=== PATIENT | female | born 1950 | race Caucasian/White ===

== ENCOUNTER → 2019-10-05 09:10 | Outpatient (CLI) | payer MEDICARE ==
[~2019-10-05 09:10] MED LIST: ALBUTEROL1.25 MG/3; BENTYL10 MG PO; CARAFATE1 G; COLESTID1 GM PO; ESTRACE1 MG PO; OMEPRAZOLE40 MG; PEPCID AC20 MG PO; PROZAC20 MG; PULMICORT FLEXHALER; RESTORIL15 MG
== END | disposition home or self-care (01) ==
LOC: D.OPS 09:10
PROVIDERS: ATTEND Surgery
DX: K21.0 Gastro-esophageal reflux disease with esophagitis (principal)

== ENCOUNTER 2019-10-11 06:29 | Inpatient (IN) | payer MEDICARE ==
[~2019-10-11] VITALS: Ht 170.2 cm; Wt 89.4 kg
[2019-10-11] VITALS (12 sets, daily range): BP systolic 103–126; BP diastolic 63–75; BMI 29.0; BMI 30.9
--- NOTE | ~2019-10-11 | EC ---
PATIENT:GREGORY CARDOZA DATE OF SERVICE: 10/11/19 SEX: F MEDICAL RECORD: [id number] DATE OF : [birth year] LOCATION:D.MS [place] AGE OF PATIENT: 69 ADMISSION DATE: 10/11/19 REFERRING PHYSICIAN: INTERPRETING PHYSICIAN: CASSIE CISNEROS MD ECHOCARDIOGRAM REPORT ECHO CHARGES 4 ECHO COMPLETE Date: 10/16/19 CLINICAL DIAGNOSIS: DYSPNEA ECHOCARDIOGRAPHIC MEASUREMENTS (adult normal given) AC root (d.<3.7cm) 3.0 cm LV Septum d (<1.2 cm> 0.6 cm Valve Excursion 1.8 cm LV Septum (systole) 1.1 cm Left Atria (s.<4.0cm> 4.1 cm LVPW d(<1.2cm) 1.1 cm RV (d.<2.3cm) 2.9 cm LVPW (sytole) 1.2 cm LV diastole(<5.6CM) 5.1 cm MV E-F(>70mm/sec) cm LV systole 3.6 cm LVOT Diameter 1.9 cm MV exc.(>10mm) cm Est.ejection fraction (50-75%) % DOPPLER: LVIT cm/sec A 111 cm/sec E 125 cm/sec LA cm/sec RVSP 24.3 mmHg LVOT 151 cm/sec AOP1/2T m/s Asc. Ao 180 cm/sec RVOT 76 cm/sec RA cm/sec PA 80 cm/sec AV Gradient Peak 13.0 mmHg AV Mean 6.2 mmHg AV Area 2.7 cm MV Gradient Peak 7.7 mmHg MV Mean 3.9 mmHg MV Area cm COMMENTS: Medical Assistant Prn: Fabiola [facility] Product Info Specialist: 1 Dr. Cisneros TAPE# PACS Pericardial Effusion N DATE OF SERVICE: ECHOCARDIOGRAM FINDINGS: 1. Left ventricular chamber size is within normal limits. Left ventricular systolic function is normal at 55%. 2. Left atrium is enlarged at 4.1 cm. Right atrium and right ventricular chamber sizes are as well mildly dilated. 3. Valvular structures have normal structure and motion. ECHOCARDIOGRAM REPORT [id number] GREGORY CARDOZA 4. Doppler interrogation reveals no significant valvular insufficiency or stenosis and pulmonary systolic pressure estimated at 24 mmHg. 5. No evidence of pericardial effusion or left ventricular thrombus. TRANSINT:[id number] Voice Confirmation ID: [id number] DOCUMENT ID: [id number] CASSIE CISNEROS MD CC: [id number] DICTATION DATE: 10/17/19 1026 TOOL GRINDING MACHINE OPERATOR: 10/17/19 1053 ADM IN [place] [id number] [place] [id number]
[~2019-10-11 06:29] MED LIST changes: -CARAFATE1 G; +CARAFATE1 G PO; -OMEPRAZOLE40 MG; +OMEPRAZOLE40 MG PO; -PROZAC20 MG; +PROZAC20 MG PO; -PULMICORT FLEXHALER; +PULMICORT FLEXHALER INH
[2019-10-11] MEDS ORDERED: RESTORIL15 MG PO (07:10)
[2019-10-11 07:12] LABS: HEMATOCRIT 44.9 % (36.0-48.0); HEMOGLOBIN 15.2 g/dL (12-16); MCH 29.5 pg (26.0-34.0); MCHC 33.9 g/dL (31.0-37.0); MCV 87.2 fL (80.0-100.0); MEAN PLATELET VOLUME 9.6 fL (7.4-10.4); RBC 5.15 10x6/uL (4.00-5.40); RDW 13.4 % (11.5-14.5); WBC 6.8 10x3/uL (4.8-10.8)
--- NOTE | 2019-10-11 12:21 | NUR ---
1210 - PT READY FOR D/C, NO BED AVAILBLE. CONVERTING TO PHASE 2 PROTOCOL PENDING BED AVAILBILITY.
--- NOTE | 2019-10-11 13:18 | NUR ---
PATIENT ADMITTED TO ROOM 2213. ADMISSION COMPLETE. RESTING. DENIES NEEDS. BED LOW. FALL PRECAUTIONS IN PLACE.CALL PIPER AND PERSONAL ITEMS IN REACH. WILL CONTINUE TO MNITOR.
--- NOTE | 2019-10-11 13:39 | NUR ---
DIRECTOR HOSPICE OPERATIONS PUMP SET UP. EDUCATION PROVIDED.
--- NOTE | 2019-10-11 15:11 | NUR ---
RESTING IN BED. VITALS REMAIN STABLE. WILL CONTINUE TO MONITOR.
--- NOTE | 2019-10-11 17:09 | NUR ---
O2 INCREASED TO 5L PER DR BLANC AND TO STAY AT 5L.
--- NOTE | 2019-10-11 17:09 | NUR ---
BOLUS DOSE FROM DECORATIVE ENGRAVER GIVEN.
--- NOTE | 2019-10-11 19:30 | NUR ---
PT LYING IN BED RESTING WITHOUT DISTRESS, AWAKENS TO VERBAL STIMULI. AOX4, AT BEDSIDE. IV LEFT HAND INUSING LR @ 100 WITH MORPHINE CHILD CARE SPECIALIST. PT DRESSINGS TO ABD CDI. O2 5L/NC. ENCOURAGED PT TO USE INCENTIVE SPIROMETER AND SPLINT ABD WITH PILLOW WHEN COUGHING. DENIES NEEDS AT THIS TIME. CL IN REACH, WILL CTM
--- NOTE | 2019-10-11 21:00 | NUR ---
ASSISTED PT TO BATHROOM TO VOID. PT UNABLE TO VOID AT THIS TIME. ASSISTED BACK TO BED. EMPTIED 40ML FROM FLEX DRAIN. DENIES OTHER NEEDS. WILL CTM
[2019-10-12] VITALS: BP 134/71
--- NOTE | 2019-10-12 01:00 | NUR ---
ASSISTED PT TO BATHROOM. VOIDED 400ML. ASSISTED BACK TO BED. TOLERATED WELL. DRESSING CDI. DENIES OTHER NEEDS. CL IN REACH, WILL CTM
[2019-10-12 04:00] VITALS: BP 110/72
--- NOTE | 2019-10-12 05:40 | NUR ---
ASSISTED PT UP TO BATHROOM TO VOID AND BACK TO BED. TOLERATED WELL, MINIMAL ASSIST. PT VERY SORE. USING PILLOW TO SPLINT. ENCOURAGED TO BREATHE IN THROUGH NOSE, OUT MOUTH. REINFORCED IMPORTANCE OF INCENTIVE SPIROMETER. DENIES FURTHER NEEDS. CL IN REACH, WILL CTM
[2019-10-12 06:46] LABS: BASOPHILS 0.1 % (0-2); EOSINOPHILS 0 % (0-7); HEMATOCRIT 42.1 % (36.0-48.0); HEMOGLOBIN 13.8 g/dL (12-16); IMMATURE GRANULOCYTES 0.2 % (0-5); MCH 29.2 pg (26.0-34.0); MCHC 32.8 g/dL (31.0-37.0); MEAN PLATELET VOLUME 9.7 fL (7.4-10.4); MONOCYTES 6.4 % (2-11); NEUTROPHILS 87.3 % (40-80); PLATELET COUNT 223 10x3/uL (130-400); RBC 4.72 10x6/uL (4.00-5.40); RDW 13.7 % (11.5-14.5)
[2019-10-12 06:57] LABS: WBC 12.6 10x3/uL (4.8-10.8)
[2019-10-12 06:58] LABS: MCV 89.2 fL (80.0-100.0)
[2019-10-12 07:02] LABS: ALBUMIN 2.9 g/dL (3.4-5.0); ALKALINE PHOSPHATASE 90 U/L (30-120); ALT (SGPT) 88 U/L (10-68); BILIRUBIN - TOTAL 0.29 mg/dL (0.2-1.3); CALC OSMOLALITY 277 mosm/kg (275-300); CALCIUM 8.2 mg/dL (8.5-10.1); CARBON DIOXIDE 26.3 mmol/L (21.0-32.0); CHLORIDE - SERUM 106 mmol/L (98-107); CREATININE - SERUM 0.8 mg/dL (0.6-1.3); GLUCOSE 110 mg/dL (74-106); POTASSIUM - SERUM 4.2 mmol/L (3.5-5.1); SODIUM 139 mmol/L (136-145); UREA NITROGEN 11 mg/dL (7-18); eGFR NON AFRICAN AMERICAN 75 mL/min (90-120)
--- NOTE | 2019-10-12 09:01 | OP ---
PATIENT NAME: GREGORY CARDOZA MEDICAL RECORD: [id number] :46 LOCATION:D.MS [facility]221[place]ior ADMISSION DATE:10/11/19 SURGEON: BRAINA BLANC MD DATE OF OPERATION: 10/11/2019 SURGEON: Briana Blanc MD PREOPERATIVE DIAGNOSES: Gastroesophageal reflux disease with esophagitis, hiatal hernia. POSTOPERATIVE DIAGNOSES: Grade III paraesophageal hernia with esophagitis, gastroesophageal reflux disease. PROCEDURE PERFORMED: Laparoscopic paraesophageal hernia repair and Ann fundoplication and intraoperative EGD was performed by my partner, Dr. Monae. ESTIMATED BLOOD LOSS: 100 cc. Case was clean contaminated. OPERATIVE COURSE: After consent was obtained, the patient was taken to the operating room and placed in the supine position on the operating table. Next, general anesthesia was given via endotracheal intubation after a timeout was performed to confirm the correct patient and procedure. After general anesthesia was obtained, the abdomen was prepped and draped in typical sterile fashion. Local anesthetic was injected just above the umbilicus. Skin was incised using 11-blade scalpel. Using 11-mm bladeless optical trocar, the abdomen was entered under direct laparoscopic vision. Adequate pneumoperitoneum was achieved. The abdominal cavity was inspected. No evidence of bile injury, no evidence of bleeding. At this time, all remaining trocars were placed, a 5 and 12-mm trocar placed in the right lateral quadrant, 5-mm trocar in the left lateral quadrant, Ben liver retractor in the subxiphoid position. All instruments were placed under direct laparoscopic vision. The left lobe of the liver was then elevated using the Ben retractor exposing the GE junction. The patient had a large paraesophageal hernia containing the upper two-thirds of the stomach. This hernia proved quite difficult to reduce. With gentle manual reduction, the hernia sac was incised. The short gastrics were mobilized off of the cardia using the Harmonic scalpel and dissection continued to the level of left crura. The left crura was skeletonized and using Harmonic scalpels with continuous dissection of the hernia sac. Next, the gastrohepatic ligament was opened using Harmonic scalpel. Dissection continued through the gastrohepatic ligament until the right crura was identified. Dissection then continued posteriorly until the dissection was completed to the level of the left crura. Then, we turned our attention anteriorly in getting full and complete dissection of the hernia sac. We were unable to obtain adequate intra-abdominal esophagus. Dissection continued well far into the mediastinum trying to obtain intra-abdominal esophagus length. We were able to get the GE junction below the diaphragm under no tension. There were a small pleural injury noted on the right side, there was a large pleural injury noted on the left side. This side was quite difficult due to the amount of stomach that was herniated into the left chest. The anterior and posterior vagus nerves were identified and preserved. As, we continued to dissect the hernia sac off of the anterior surface of the stomach, a small gastrotomy was encountered. At this time, the gastrotomy was closed with interrupted 3-0 OPERATIVE REPORT [id number] GREGORY CARDOZA Vicryl suture. My partner, Dr. Monae, was consulted. He came and performed an intraoperative EGD. We did an intraoperative EGD, which showed no esophageal injuries. The gastrotomy hole appeared well repaired. A leak test was performed by instilling water in the upper abdomen. There was no evidence of leak. At this time, Adan powder was sprayed into the mediastinum. The diaphragm was closed with an 0 Stratafix polypropylene suture. A Ann was performed by passing the stomach posterior to the gastroesophageal junction. A loose floppy Ann was performed covering the area of the prior gastrotomy repair. The Ann was performed using a 2-0 Stratafix suture. At this time, the scope was reinserted into the stomach. The stomach was insufflated. Again, a second leak test was performed, which showed no evidence of leak. The scope was slowly withdrawn. There was no abnormality or mucosal trauma noted within the esophagus as well or the stomach. At this time, the stomach was desufflated. The scope was withdrawn. A 19-Setswana drain was placed into the abdomen. It was placed through the diaphragm and into the mediastinum and left chest. It was delivered out through the 5-mm left lower quadrant trocar. The abdomen was copiously irrigated and suctioned. All 4 quadrants of the abdomen were inspected. There was no evidence of bowel injury. No evidence of bleeding. The Ben liver retractor was removed. A 5-mm camera was then used to close the 2 larger trocar sites with a Trent-Ana suture passer and 0 Vicryl suture. The stomach was desufflated. Multiple Valsalva breaths were given. At this time, the remaining trocar was removed. Skin was closed with 4-0 Monocryl, Mastisol and Steri-Strips. The drain was secured using 2-0 nylon suture. A postoperative chest x-ray was performed, which showed no evidence of pneumothorax. At this time, the patient was extubated and transferred to the PACU in stable condition. TRANSINT:[id number] Voice Confirmation ID: [id number] DOCUMENT ID: [id number] BRIANA BLANC MD at 0901 CC: [id number] DICTATION DATE: 10/11/19 1250 QUALITY SUPERVISOR: 10/11/19 1632 ADM IN [place] [address] [place] [address]
[2019-10-12 09:34] VITALS: BP 100/54
--- NOTE | 2019-10-12 11:15 | NUR ---
PATIENT UP TO CHAIR AT THIS TIME WITH ASSIST. IV INTACT. O2 ON 5L. SATS 92-94. CALL LIGHT WITHIN REACH. FAMILY AT BEDSIDE. PT IN TO AMBULATE WITH PATIENT.
--- NOTE | 2019-10-12 11:20 | NUR ---
PATIENT UP AMBULATING IN WALLER WITH PT.
--- NOTE | 2019-10-12 11:24 | NUR ---
PATIENT HAILE REMOVED AT THIS TIME. EXPLAINED TO PATIENT THAT HE WILL NEED TO GET OUT OF BED AND AMBULATE IN HALLS. VERBALIZED UNDERSTANDING. NO QUESTIONS AT THIS TIME. IV INTACT. URINAL GIVEN TO PATIENT. CALL LIGHT WITHIN REACH.
[2019-10-12 13:04] VITALS: BP 104/47
[2019-10-12 13:36] VITALS: Ht 170.2 cm; Wt 89.4 kg
[2019-10-12 18:07] VITALS: BP 110/50
--- NOTE | 2019-10-12 18:45 | NUR ---
PATIENT IN BED WITH IV INTACT. HAS BEEN UP AND DOWN SEVERAL TIMES TO BR. NO COMPLAINTS. FAMILY AT BEDSIDE. CALL LIGHTW PATRICE LIU.
[2019-10-12 20:00] VITALS: BP 114/46
[2019-10-13] VITALS: BP 113/62
[2019-10-13 04:00] VITALS: BP 107/50
[2019-10-13 04:52] LABS: BASOPHILS 0.1 % (0-2); EOSINOPHILS 0 % (0-7); HEMATOCRIT 34.8 % (36.0-48.0); HEMOGLOBIN 11.2 g/dL (12-16); IMMATURE GRANULOCYTES 0.3 % (0-5); LYMPHOCYTES 6.2 % (15-50); MCH 28.8 pg (26.0-34.0); MCHC 32.2 g/dL (31.0-37.0); MCV 89.5 fL (80.0-100.0); MEAN PLATELET VOLUME 9.3 fL (7.4-10.4); MONOCYTES 10.4 % (2-11); RBC 3.89 10x6/uL (4.00-5.40)
[2019-10-13 04:55] LABS: CALC OSMOLALITY 275 mosm/kg (275-300); CALCIUM 8.1 mg/dL (8.5-10.1); CARBON DIOXIDE 26.4 mmol/L (21.0-32.0); CHLORIDE - SERUM 104 mmol/L (98-107); CREATININE - SERUM 0.8 mg/dL (0.6-1.3); GLUCOSE 100 mg/dL (74-106); SODIUM 138 mmol/L (136-145); UREA NITROGEN 12 mg/dL (7-18); eGFR NON AFRICAN AMERICAN 75 mL/min (90-120)
[2019-10-13 05:06] LABS: POTASSIUM - SERUM 3.4 mmol/L (3.5-5.1)
[2019-10-13 05:13] LABS: PLATELET COUNT 146 10x3/uL (130-400); WBC 7.1 10x3/uL (4.8-10.8)
[2019-10-13 05:18] LABS: APTT 40.3 SECONDS (22.8-39.4); INR 1.33 (0.85-1.17); PROTIME 16.4 SECONDS (11.6-15.0)
--- NOTE | 2019-10-13 06:48 | NUR ---
ASSESSED AT THE BEGINNING OF THE SHIFT. PT IS ALERT AND ORIENTED, ABLE TO VERBALIZE NEEDS. HER HAS REMAINED WITH HER ALL NIGHT AND WE HAVE ASSISTED HER TO THE BATHROOM NEEDED. SHE IS WEARING HER SCD'S AND THERE WAS A LITTLE BIT OF BLOODY DRAINAGE ONCE BUT NOT SINCE THEN. O2 REMAINS IN PLACAE AT 5 LITERS.
--- NOTE | 2019-10-13 07:58 | NUR ---
PT RESTING IN BED WITH EYES OPEN, AT THE BEDSIDE. IV LOCATED TO LEFT HAND CURRENTLY RUNNING LR @ 100ML, MORPHINE DRIER AND GRINDER TENDER PRESENT. CURRENTLY ON 5L VIA NC. NO S/S OF DISTRESS AT THIS TIME, DENIES NEEDS, WILL CONT TO MONITOR.
[2019-10-13 08:43] VITALS: BP 136/90
--- NOTE | 2019-10-13 11:59 | NUR ---
FLEX DRAIN PULLED, STERISTRIP AND 2X2 APPLIED. 25ML OF BLOODY DRAINAGE EMPTIED. WILL CONT TO MONITOR.
[2019-10-13 12:12] VITALS: BP 108/52
--- NOTE | 2019-10-13 12:25 | NUR ---
ASSISTED RN IN PASSING PATIENT MEDS AND STARTING IV. SCANNED ALL MEDS AT 1013 INCLUDING VANC WHICH WAS NOT DUE. HUNG PIPERCILLIN FIRST UNTIL TROUGH WAS COMPLETED, RECEIVED CALL FROM PHARMACIST A LITTLE AFTER 11 IN REGARDS TO VANC, ADVISED HAD NOT HUNG YET AND PER PHARMACIST, TROUGH IS LOW ENOUGH TO HANG. ASKED NURSE TO GO AHEAD AND HANG VANC WHICH WAS THEN HUNG AT 1135. ADJUSTED TIME PER KIT IN PHARMACY
--- NOTE | 2019-10-13 16:12 | MORECARE ---
CASE MANAGEMENT DISCHARGE SUMMARY PATIENT: GREGORY CARDOZA UNIT: [id number] ADM DATE: 10/11/19 AGE: 69 : 48 SEX: F ROOM/BED: D.2213 AUTHOR: ERIN,DOC PHYSICIAN: REFERRING PHYSICIAN: BRIANA BLANC MD DATE OF SERVICE: 10/13/19 Discharge Plan Patient Name: GREGORY CARDOZA Facility: [facility]:[place] : 1950 Planned Disposition: Home Anticipated Discharge Date: Discharge Date: Expected LOS: Initial Reviewer: [email or web address] Initial Review Date: 10/12/2019 Generated: 10/13/19 5:12 pm Comments DCP- Discharge Planning Updated by [email or web address]: Ely Molina on 10/13/19 3:[address] Patient Name: GREGORY CARDOZA Admission Status: Elective Accout number: [id number] Admission Date: 10-11-2019 : 1950 Admission Diagnosis: Attending: BRIANA BLANC Current LOS: 2 Anticipated DC Date: Planned Disposition: Home Primary Insurance: MEDICARE A & B Discharge Planning Comments: CM met with patient to complete initial dc planning assessment. CM educated patient on the CM role and verbal consent given by patient to complete assessment. Patient lives at home with her spouse where she is independent with her care. At discharge patient plans to return home and feels this is a safe discharge. Her will be her public transit bus driver home. CM discussed availability of home health, rehab services, and medical equipment. She does have a nebulizer at home. Patient denied known discharge needs at this time. IMM served and explained copy given to her and one placed on the chart. CM will continue to follow and will assist as needed with dc plans/needs. Platemaker: Ely Molina DCPIA - Discharge Planning Initial Assessment Updated by [email or web address]: Ely Molina on 10/13/19 4:10 pm * Is the patient Alert and Oriented? Yes * How many steps to enter\exit or inside your home? * PCP RAHEL YE IN [place] * [facility] [address] [place] * Preadmission Environment Home with Family * ADLs Independent * Equipment Nebulizer * List name and contact numbers for known caregivers / representatives who currently or will assist patient after discharge: MYA (SPRINGPJAIRO) [phone] * Verbal permission to speak to the caregivers and representatives has been obtained from the patient. N/A * Community resources currently utilized None * Additional services required to return to the preadmission environment? No * Can the patient safely return to the preadmission environment? Yes * Has this patient been hospitalized within the prior 30 days at any hospital? No Coverage Notice Reviewer: [email or web address] Juan A Molina Notice Issued Date-Time: 10/13/2019 15:30 Notice Type: IM Discharge Notice Notice Delivered To: Patient Relationship to Patient: Etymology Teacher Name: Delivery Method: HAND - Hand Delivered Kathrin Days: Prior Verbal Notification: Recipient Understood Notice: Yes Recipient Signature: Yes Med Rec Note Co-signed by Attending: Coverage Notice Comment: Patient Name: GREGORY CARDOZA Page [phone] at 1612 All edits/amendments must be made on the electronic document DICTATION DATE: 10/13/19 1612 EXERCISER: NATHANIEL 10/13/19 1612 RPT#: [id number] DC DATE: STATUS: ADM IN [address] [place] [address] END OF REPORT
[2019-10-13 17:03] VITALS: BP 104/60
--- NOTE | 2019-10-13 17:18 | NUR ---
OT NOTE: (AM SESSION) PT COMPLETED BED MOB WITH MIN A. PT REQUIRED MIN A FOR SIT TO STAND. PT COMPLETED COMPLETED ADL MOB WITH RW WITH EXTRA TIME AND ASSISTANCE FOR MANAGEMENT OF MEDICAL EQUIPMENT DURING TASKS. PT COMPLETED TOILETING WITH CGA. (PM SESSION) PT IS EXHIBITING SOB WITH ACTIVITIES. PT COMPLETED ADL MOB WITH RW WITH CGA-MIN A, PT COMPETED TOILETING TASKS WITH CGA-MIN A. NOTIFIED NURSING THAT PT STATES IT IS VERY DIFFICULT TO BREATHE WITH ACTIVITIES AND LAYING SUPINE. PT WOULD BENEFIT FROM IN PATIENT REHAB. [phone] THANK YOU,REAL DOWNS
--- NOTE | 2019-10-13 17:59 | OP ---
PATIENT NAME: GREGORY CARDOZA MEDICAL RECORD: [id number] :46 LOCATION:D.MS Hernandez221Jnuior ADMISSION DATE:10/11/19 SURGEON: JUDI YA MD DATE OF OPERATION: 10/11/2019 PREOPERATIVE DIAGNOSIS: Rule out gastric leak. POSTOPERATIVE DIAGNOSIS: Rule out gastric leak. PROCEDURE: Esophagogastroduodenoscopy. DESCRIPTION OF PROCEDURE: Dr. Myles was performing the abdominal portion of the operation. I was the surgeon for the esophagogastroduodenoscopy without biopsies. He wanted me to pneumatically test the gastric repair. I came to OR 5. A bite block was inserted. A gastroscope was inserted into the mouth. It was advanced easily into the hypopharynx. The esophagus was easily intubated as were the stomach and duodenum. We were using CO2 as our insufflation gas. He instilled fluid in the left upper quadrant and I inflated gas, so that the stomach was distended and there was no bubbling of CO2 and therefore no evidence of a gastric leak. I then desufflated the stomach. I then withdrew the scope under direct vision. That ended my portion of the operative procedure. TRANSINT:[id number] Voice Confirmation ID: [id number] DOCUMENT ID: [id number] JUDI YA MD at 1759 CC: [id number] DICTATION DATE: 10/11/19 1223 CONSTRUCTION REPRESENTATIVE: 10/11/19 1517 ADM IN [facility] [address] [place] [address]
[2019-10-13 20:26] VITALS: BP 124/64
[2019-10-14 00:35] VITALS: BP 136/78
[2019-10-14 04:55] VITALS: BP 116/66
[2019-10-14 05:36] LABS: BASOPHILS 0.2 % (0-2); EOSINOPHILS 1.1 % (0-7); HEMATOCRIT 33.9 % (36.0-48.0); IMMATURE GRANULOCYTES 0.2 % (0-5); LYMPHOCYTES 8.6 % (15-50); MCH 28.8 pg (26.0-34.0); MCHC 32.4 g/dL (31.0-37.0); MCV 88.7 fL (80.0-100.0); MEAN PLATELET VOLUME 9.2 fL (7.4-10.4); MONOCYTES 10.4 % (2-11); NEUTROPHILS 79.5 % (40-80); PLATELET COUNT 153 10x3/uL (130-400); RBC 3.82 10x6/uL (4.00-5.40); WBC 6.4 10x3/uL (4.8-10.8)
[2019-10-14 05:51] LABS: CALC OSMOLALITY 274 mosm/kg (275-300); CALCIUM 7.9 mg/dL (8.5-10.1); CARBON DIOXIDE 28.4 mmol/L (21.0-32.0); CHLORIDE - SERUM 104 mmol/L (98-107); CREATININE - SERUM 0.6 mg/dL (0.6-1.3); GLUCOSE 95 mg/dL (74-106); POTASSIUM - SERUM 3.3 mmol/L (3.5-5.1); SODIUM 138 mmol/L (136-145); UREA NITROGEN 10 mg/dL (7-18); eGFR NON AFRICAN AMERICAN > 90 mL/min (90-120)
--- NOTE | 2019-10-14 08:05 | NUR ---
RESTING IN BED, NO DISTRESS NOTED, FAMILY IN ROOM, IV INFUSING, CONT TO MONITOR WOUNDS AND ELECTROLYTES
[2019-10-14 09:52] VITALS: BP 112/72
[2019-10-14 14:24] VITALS: BP 117/56
[2019-10-14 16:56] VITALS: BP 131/71
[2019-10-14 20:00] VITALS: BP 119/59
--- NOTE | 2019-10-14 20:50 | NUR ---
PATIENT SITTING UP IN BED, AT BEDSIDE. A&0, UP W/ ASSIST. NO ACUTE DISTRESS NOTED AT THIS TIME. IV TO THE RIGHT FOREARM, LR@60. NC 3L. BED IN LOW POSITION, RAILS X2. BEDSIDE TABLE AND CALL LIGHT WITHIN REACH.
[2019-10-15] VITALS: BP 147/67
[2019-10-15 04:00] VITALS: BP 140/60
[2019-10-15 06:40] LABS: BASOPHILS 0.2 % (0-2); EOSINOPHILS 1.9 % (0-7); HEMATOCRIT 33.3 % (36.0-48.0); HEMOGLOBIN 10.9 g/dL (12-16); IMMATURE GRANULOCYTES 0.2 % (0-5); LYMPHOCYTES 11.4 % (15-50); MCH 28.9 pg (26.0-34.0); MCHC 32.7 g/dL (31.0-37.0); MCV 88.3 fL (80.0-100.0); MEAN PLATELET VOLUME 9.1 fL (7.4-10.4); MONOCYTES 12.7 % (2-11); NEUTROPHILS 73.6 % (40-80); PLATELET COUNT 162 10x3/uL (130-400); RBC 3.77 10x6/uL (4.00-5.40); RDW 13.7 % (11.5-14.5); WBC 5.3 10x3/uL (4.8-10.8)
[2019-10-15 07:00] LABS: CALC OSMOLALITY 270 mosm/kg (275-300); CARBON DIOXIDE 32.4 mmol/L (21.0-32.0); CHLORIDE - SERUM 101 mmol/L (98-107); CREATININE - SERUM 0.7 mg/dL (0.6-1.3); GLUCOSE 103 mg/dL (74-106); SODIUM 136 mmol/L (136-145); UREA NITROGEN 10 mg/dL (7-18); eGFR NON AFRICAN AMERICAN 87 mL/min (90-120)
[2019-10-15 07:03] LABS: POTASSIUM - SERUM 2.9 mmol/L (3.5-5.1)
--- NOTE | 2019-10-15 07:41 | NUR ---
CRITICAL K OF 2.9 REPORTED BY LAB, WILL COVER WITH PROTOCOL
[2019-10-15 08:38] VITALS: BP 134/77
--- NOTE | 2019-10-15 09:25 | NUR ---
RESTING IN BED, GIVEN 1ST DOSE OF K THIS AM, CONT TO MONITOR AND PROVIDE K PER PROTOCOL, IV INFUSING,
[2019-10-15 12:33] VITALS: BP 117/60
--- NOTE | 2019-10-15 13:33 | NUR ---
Medical record reviewed. ARU will continue to monitor for medical stability and admission to the ARU.
[2019-10-15 17:07] VITALS: BP 117/52
--- NOTE | 2019-10-15 19:10 | NUR ---
PATIENT LYING DOWN IN BED, AT BEDSIDE. ALERT AND ORIENTED AND UP W/ ASSISTANCE. NO ACTUE DISTRESSS NOTED AT THIS TIME. IV IN RIGHT FOREARM, LR @60, NO REDNESS OR SWELLING. PATIENT STATES SHE HAS NO NEEDS AT THIS TIME. BED IN LOW POSITIOIN, RAILS X2. BEDSIDE TABLE AND CALL LIGHT WITHIN REACH.
[2019-10-15 19:52] VITALS: BP 102/69
[2019-10-16] VITALS: BP 179/86
[2019-10-16 04:00] VITALS: BP 110/58
[2019-10-16 05:19] LABS: BASOPHILS 0.2 % (0-2); EOSINOPHILS 2.5 % (0-7); HEMATOCRIT 32.7 % (36.0-48.0); HEMOGLOBIN 10.8 g/dL (12-16); IMMATURE GRANULOCYTES 0.2 % (0-5); LYMPHOCYTES 11.6 % (15-50); MCH 28.9 pg (26.0-34.0); MCV 87.4 fL (80.0-100.0); MEAN PLATELET VOLUME 8.9 fL (7.4-10.4); MONOCYTES 15.2 % (2-11); NEUTROPHILS 70.3 % (40-80); PLATELET COUNT 165 10x3/uL (130-400); RBC 3.74 10x6/uL (4.00-5.40); RDW 13.7 % (11.5-14.5); WBC 5.3 10x3/uL (4.8-10.8)
--- NOTE | 2019-10-16 08:00 | NUR ---
ASSESSMENT PER FLOW SHEET. PATIENT IS WITHOUT DISTRESS.DENIES NEEDS.CALL LIGHT IN REACH.
[2019-10-16 08:23] LABS: CALC OSMOLALITY 276 mosm/kg (275-300); CALCIUM 8.2 mg/dL (8.5-10.1); CARBON DIOXIDE 30.6 mmol/L (21.0-32.0); CHLORIDE - SERUM 104 mmol/L (98-107); CREATININE - SERUM 0.8 mg/dL (0.6-1.3); GLUCOSE 100 mg/dL (74-106); MAGNESIUM - SERUM 1.9 mg/dL (1.8-2.4); PHOSPHOROUS 2.1 mg/dL (2.5-4.9); POTASSIUM - SERUM 3.4 mmol/L (3.5-5.1); PRO BNP 535 pg/mL (0-125); SODIUM 139 mmol/L (136-145); TROPONIN-I < 0.017 ng/mL (0.000-0.060); UREA NITROGEN 9 mg/dL (7-18); eGFR NON AFRICAN AMERICAN 75 mL/min (90-120)
[2019-10-16 08:56] VITALS: BP 131/69
--- NOTE | 2019-10-16 11:29 | MORECARE ---
CASE MANAGEMENT DISCHARGE SUMMARY PATIENT: GREGORY CARDOZA UNIT: [id number] ADM DATE: 10/11/19 AGE: 69 : 48 SEX: F ROOM/BED: D.2213 AUTHOR: ERIN,DOC PHYSICIAN: REFERRING PHYSICIAN: BRIANA BLANC MD DATE OF SERVICE: 10/16/19 Discharge Plan Patient Name: GREGORY CARDOZA Facility: [facility]:[place] : 1950 Planned Disposition: Home Anticipated Discharge Date: Discharge Date: Expected LOS: Initial Reviewer: [email or web address] Initial Review Date: 10/12/2019 Generated: 10/16/19 12:29 pm Comments DCP- Discharge Planning Updated by [email or web address]: Ely Molina on 10/16/19 10:[address] SPOKE WITH PATIENT AND SPOUSE AND THEY WOULD LIKE TO GO TO INPATIENT REHAB AT [facility] I HAVE SENT THE REFERRAL TO [facility] FAX # [phone] LILIAN SIGNED AND PLACED IN CHART ALONG WITH HER SIGNED IMM DCP- Discharge Planning Updated by [email or web address]: Ely Molina on 10/13/19 2:[address] Patient Name: GREGORY CARDOZA Admission Status: Elective Accout number: [id number] Admission Date: 10-11-2019 : 1950 Admission Diagnosis: Attending: BRIANA BLANC Current LOS: 2 Anticipated DC Date: Planned Disposition: Home Primary Insurance: MEDICARE A & B Discharge Planning Comments: CM met with patient to complete initial dc planning assessment. CM educated patient on the CM role and verbal consent given by patient to complete assessment. Patient lives at home with her spouse where she is independent with her care. At discharge patient plans to return home and feels this is a safe discharge. Her will be her log driver home. CM discussed availability of home health, rehab services, and medical equipment. She does have a nebulizer at home. Patient denied known discharge needs at this time. IMM served and explained copy given to her and one placed on the chart. CM will continue to follow and will assist as needed with dc plans/needs. Special Technical Operations Officer: Ely Molina DCPIA - Discharge Planning Initial Assessment Updated by [id number]: Ely Molina on 10/13/19 4:10 pm * Is the patient Alert and Oriented? Yes * How many steps to enter\exit or inside your home? * PCP RAHEL YE IN [place] * Pharmacy [facility] * Preadmission Environment Home with Family * ADLs Independent * Equipment Nebulizer * List name and contact numbers for known caregivers / representatives who currently or will assist patient after discharge: MYA (SPOPUSE) [phone] * Verbal permission to speak to the caregivers and representatives has been obtained from the patient. N/A * Community resources currently utilized None * Additional services required to return to the preadmission environment? No * Can the patient safely return to the preadmission environment? Yes * Has this patient been hospitalized within the prior 30 days at any hospital? No External Providers External Provider: OTHER-OTHER Next Contact Date: Service Request Date: Service Type: Resolution: Reviewer: Comments: Coverage Notice Reviewer: [email or web address] Juan A Molina Notice Issued Date-Time: 10/13/2019 15:30 Notice Type: IM Discharge Notice Notice Delivered To: Patient Relationship to Patient: Traffic Operations Manager Name: Delivery Method: HAND - Hand Delivered Kathrin Days: Prior Verbal Notification: Recipient Understood Notice: Yes Recipient Signature: Yes Med Rec Note Co-signed by Attending: Coverage Notice Comment: Reviewer: [email or web address] Juan A Molina Notice Issued Date-Time: 10/16/2019 10:30 Notice Type: IM Discharge Notice Notice Delivered To: Patient Relationship to Patient: Traffic Operations Manager Name: Delivery Method: HAND - Hand Delivered Kathrin Days: Prior Verbal Notification: Recipient Understood Notice: Yes Recipient Signature: Yes Med Rec Note Co-signed by Attending: Coverage Notice Comment: Last DP export: 10/13/19 2:12 pm Patient Name: GREGORY CARDOZA Page [phone] at 1129 All edits/amendments must be made on the electronic document DICTATION DATE: 10/16/19 112 SLIP TENDER: NATHANIEL 10/16/191128 RPT#: [id number] DC DATE: STATUS: ADM IN [facility] [address] [place] [address] END OF REPORT
[2019-10-16 13:24] VITALS: BP 143/69
--- NOTE | 2019-10-16 13:30 | NUR ---
UP TO BATHROOM LARGE LOOSE STOOL,BROWN IN COLOR.PT STATES SHE MARTINEZ NOT WANT ANYMORE MILK OF MAG.
[2019-10-16 17:28] VITALS: BP 153/68
--- NOTE | 2019-10-16 19:00 | NUR ---
PATIENT RESTING IN BED, AT BEDSIDE. NO SIGNS OF ACUTE DISTRESS NOTED AT THIS TIME. PATIENT STATES SHE HAS NOT BEEN FEELING WELL TODAY AND HER PAIN IS 8/10. PATIENT REQUESTED PAIN MEDICINE. BED IN LOW POSITION, RAILSX2. BEDSIDE TABLE AND CALL LIGHT WITHIN REACH.
--- NOTE | 2019-10-16 19:57 | NUR ---
OT NOTE: PT SITTING UPRIGHT IN CHAIR. PT COMPLETED SIT TO STAND WITH CGA. PT COMPLETED ADL MOB WITH RW WITH CGA/MIN A. PT COMPLETED BUE AROM WITH FUNCTIONAL TASKS AND WALKER MANAGEMENT. PT COMPLETED FACE WASH WITH SETUP. PT IS MUCH IMPROVED. [phone] THANK YOU,REAL DOWNS
[2019-10-16 20:00] VITALS: BP 145/75
[2019-10-17] VITALS: BP 114/66
[2019-10-17 04:00] VITALS: BP 104/56
--- NOTE | 2019-10-17 07:40 | NUR ---
ALERT AND ORIENTED. LUNGS WITH BILATERAL INSPIRATORY WHEEZES. HEART SOUNDS S1 AND S2 HEARD IN ALL [facility]. BOWEL SOUNDS ACTIVE X 4. LAP SITES C/D/I. SKIN INTACT WITHOUT REDNESS. IV TO LFA PATENT WITHOUT REDNESS. DENIES NEEDS. AT BEDSIDE. BED LOW. FALL PRECAUTIONS IN PLACE IN PLACE. CALL PIPER AND PERSONAL ITEMS IN REACH. WILL CONTINUE TO MONITOR.
[2019-10-17 10:07] VITALS: BP 114/62
[2019-10-17] MEDS ORDERED: ALBUTEROL2.5 MG/3 M INH (13:50)
[2019-10-17] MEDS ORDERED: IPRAT-ALBUT 0.5-3 ML INH (13:50)
[2019-10-17] MEDS ORDERED: ROBITUSSIN DM 110 ML PO (13:51)
[2019-10-17] MEDS ORDERED: HYDROCODON-ACE1 EAC7 PO (13:51)
[2019-10-17] MEDS ORDERED: SINGULAIR10 MG PO (13:51)
[2019-10-17] MEDS ORDERED: LEVOFLOXACIN500 MG PO (13:52)
[2019-10-17] MEDS ORDERED: PROTONIX40 MG PO (13:52)
[2019-10-17 14:39] VITALS: BP 140/89
--- NOTE | 2019-10-17 15:25 | MORECARE ---
CASE MANAGEMENT DISCHARGE SUMMARY PATIENT: GREGORY CARDOZA UNIT: [id number] ADM DATE: 10/11/19 AGE: 69 : 48 SEX: F ROOM/BED: D.2213 AUTHOR: ERIN,DOC PHYSICIAN: REFERRING PHYSICIAN: BRIANA BLANC MD DATE OF SERVICE: 10/17/19 Discharge Plan Patient Name: GREGORY CARDOZA Facility: [facility]:[place] : 1950 Planned Disposition: Home Anticipated Discharge Date: Discharge Date: Expected LOS: Initial Reviewer: [email or web address] Initial Review Date: 10/12/2019 Generated: 10/17/19 4:25 pm Comments DCP- Discharge Planning Updated by [email or web address]: Ely Molina on 10/16/19 10:[address] SPOKE WITH PATIENT AND SPOUSE AND THEY WOULD LIKE TO GO TO INPATIENT REHAB AT [facility] I HAVE SENT THE REFERRAL TO [facility] FAX # [phone] LILIAN SIGNED AND PLACED IN CHART ALONG WITH HER SIGNED IMM DCP- Discharge Planning Updated by [email or web address]: Ely Molina on 10/13/19 2:[address] Patient Name: GREGORY CARDOZA Admission Status: Elective Accout number: [id number] Admission Date: 10-11-2019 : 1950 Admission Diagnosis: Attending: BRIANA BLANC Current LOS: 2 Anticipated DC Date: Planned Disposition: Home Primary Insurance: MEDICARE A & B Discharge Planning Comments: CM met with patient to complete initial dc planning assessment. CM educated patient on the CM role and verbal consent given by patient to complete assessment. Patient lives at home with her spouse where she is independent with her care. At discharge patient plans to return home and feels this is a safe discharge. Her will be her truck driver rubbish collector home. CM discussed availability of home health, rehab services, and medical equipment. She does have a nebulizer at home. Patient denied known discharge needs at this time. [facility] served and explained copy given to her and one placed on the chart. CM will continue to follow and will assist as needed with dc plans/needs. Networking Technician: Ely Molina DCPIA - Discharge Planning Initial Assessment Updated by [email or web address]: Ely Molina on 10/13/19 4:10 pm * Is the patient Alert and Oriented? Yes * How many steps to enter\exit or inside your home? * PCP RAHEL YE IN [place] * Pharmacy [facility] * Preadmission Environment Home with Family * ADLs Independent * Equipment Nebulizer * List name and contact numbers for known caregivers / representatives who currently or will assist patient after discharge: MYA (SPOPUSE) [phone] * Verbal permission to speak to the caregivers and representatives has been obtained from the patient. N/A * Community resources currently utilized None * Additional services required to return to the preadmission environment? No * Can the patient safely return to the preadmission environment? Yes * Has this patient been hospitalized within the prior 30 days at any hospital? No Coverage Notice Reviewer: [email or web address] Juan A Molina Notice Issued Date-Time: 10/13/2019 15:30 Notice Type: IM Discharge Notice Notice Delivered To: Patient Relationship to Patient: Adult Services Librarian Name: Delivery Method: HAND - Hand Delivered Kathrin Days: Prior Verbal Notification: Recipient Understood Notice: Yes Recipient Signature: Yes Med Rec Note Co-signed by Attending: Coverage Notice Comment: Reviewer: [email or web address] Molina Notice Issued Date-Time: 10/16/2019 10:30 Notice Type: IM Discharge Notice Notice Delivered To: Patient Relationship to Patient: Adult Services Librarian Name: Delivery Method: HAND - Hand Delivered Kathrin Days: Prior Verbal Notification: Recipient Understood Notice: Yes Recipient Signature: Yes Med Rec Note Co-signed by Attending: Coverage Notice Comment: Reviewer: [id number] Juan A Molina Notice Issued Date-Time: 10/16/2019 10:30 Notice Type: Patient Choice Letter Notice Delivered To: Patient Relationship to Patient: Adult Services Librarian Name: Delivery Method: HAND - Hand Delivered Kathrin Days: Prior Verbal Notification: Recipient Understood Notice: Yes Recipient Signature: Yes Med Rec Note Co-signed by Attending: Coverage Notice Comment: LILIAN WITH SALINE Last DP export: 10/16/19 10:29 am Patient Name: GREGORY CARDOZA Page [id number] at 1525 All edits/amendments must be made on the electronic document DICTATION DATE: 10/17/19 1524 [employer] OPERATOR: NATHANIEL 10/17/19 1524 RPT#: [id number] DC DATE: STATUS: ADM IN [facility] [address] [place] [address] END OF REPORT
--- NOTE | 2019-10-17 15:46 | NUR ---
DISCHARGE EDUCATION PROVIDED BOTH WRITTEN AND VERBAL. VERBALIZED UNDERSTANDING. DENIES FURTHER QUESTIONS. IV REMOVED FROM [facility] WITH TIP INTACT. REPORT CALLED TO [facility]. WAITING AMBULANCE.
--- NOTE | 2019-10-17 17:31 | NUR ---
PATIENT DISCHARGED VIA AMBULANCE WITH ALL [facility].
[2019-10-19 08:11] LABS: IMMUNOGLOBULIN E 10 IU/mL (6-495)
--- NOTE | 2019-10-21 09:47 | MORECARE ---
CASE MANAGEMENT DISCHARGE SUMMARY PATIENT: GREGORY CARDOZA UNIT: [id number] ADM DATE: 10/11/19 AGE: 69 : 48 SEX: F ROOM/BED: D.2213 AUTHOR: ERIN,DOC PHYSICIAN: REFERRING PHYSICIAN: BRIANA BLANC MD DATE OF SERVICE: 10/21/19 Discharge Plan Patient Name: GREGORY CARDOZA Facility: [facility]:[place] : 1950 Planned Disposition: Home Anticipated Discharge Date: Discharge Date: 10/17/2019 Expected LOS: Initial Reviewer: [email or web address] Initial Review Date: 10/12/2019 Generated: 10/21/19 10:47 am Comments DCP- Discharge Planning Updated by [email or web address]: Ely Molina on 10/16/19 10:[address] SPOKE WITH PATIENT AND SPOUSE AND THEY WOULD LIKE TO GO TO INPATIENT REHAB AT [facility] I HAVE SENT THE REFERRAL TO [facility] FAX # [phone] LILIAN SIGNED AND PLACED IN CHART ALONG WITH HER SIGNED IMM DCP- Discharge Planning Updated by [email or web address]: Ely Molina on 10/13/19 2:[address] Patient Name: GREGORY CARDOZA Admission Status: Elective Accout number: [id number] Admission Date: 10-11-2019 : 1950 Admission Diagnosis: Attending: BRIANA BLANC Current LOS: 2 Anticipated DC Date: Planned Disposition: Home Primary Insurance: MEDICARE A & B Discharge Planning Comments: CM met with patient to complete initial dc planning assessment. CM educated patient on the CM role and verbal consent given by patient to complete assessment. Patient lives at home with her spouse where she is independent with her care. At discharge patient plans to return home and feels this is a safe discharge. Her will be her hook up driver home. CM discussed availability of home health, rehab services, and medical equipment. She does have a nebulizer at home. Patient denied known discharge needs at this time. IMM served and explained copy given to her and one placed on the chart. CM will continue to follow and will assist as needed with dc plans/needs. Drying Can Worker: Ely Molina DCPIA - Discharge Planning Initial Assessment Updated by [id number]: Ely Molina on 10/13/19 4:10 pm * Is the patient Alert and Oriented? Yes * How many steps to enter\exit or inside your home? * PCP RAHEL YE IN [place] * Pharmacy [facility] * Preadmission Environment Home with Family * ADLs Independent * Equipment Nebulizer * List name and contact numbers for known caregivers / representatives who currently or will assist patient after discharge: MYA STEARNSPJAIRO) [phone] * Verbal permission to speak to the caregivers and representatives has been obtained from the patient. N/A * Community resources currently utilized None * Additional services required to return to the preadmission environment? No * Can the patient safely return to the preadmission environment? Yes * Has this patient been hospitalized within the prior 30 days at any hospital? No Coverage Notice Reviewer: [id number] Molina Notice Issued Date-Time: 10/13/2019 15:30 Notice Type: IM Discharge Notice Notice Delivered To: Patient Relationship to Patient: Cra Officer Name: Delivery Method: HAND - Hand Delivered Kathrin Days: Prior Verbal Notification: Recipient Understood Notice: Yes Recipient Signature: Yes Med Rec Note Co-signed by Attending: Coverage Notice Comment: Reviewer: [id number] Molina Notice Issued Date-Time: 10/16/2019 10:30 Notice Type: IM Discharge Notice Notice Delivered To: Patient Relationship to Patient: Cra Officer Name: Delivery Method: HAND - Hand Delivered Kathrin Days: Prior Verbal Notification: Recipient Understood Notice: Yes Recipient Signature: Yes Med Rec Note Co-signed by Attending: Coverage Notice Comment: Reviewer: [id number] Molina Notice Issued Date-Time: 10/16/2019 10:30 Notice Type: Patient Choice Letter Notice Delivered To: Patient Relationship to Patient: Cra Officer Name: Delivery Method: HAND - Hand Delivered Kathrin Days: Prior Verbal Notification: Recipient Understood Notice: Yes Recipient Signature: Yes Med Rec Note Co-signed by Attending: Coverage Notice Comment: LILIAN WITH SALINE Last DP export: 10/17/19 2:25 p Patient Name: GREGORY CARDOZA Page [id number] at 0947 All edits/amendments must be made on the electronic document DICTATION DATE: 10/21/19946 TECHNICAL SERVICES COORDINATOR: NATHANIEL 10/21/1949 RPT#: [id number] DC DATE:10/17/19 STATUS: DIS IN [facility] [address] [place] [address] END OF REPORT
== END 2019-10-17 17:31 | DRG 327 ==
LOC: D.PAN 06:29 → D.MS 12:09 → D.PAN 12:10 → D.MS 12:10
PROVIDERS: Anesthesiology; Internal Medicine Pulmonary Disease; ADMIT Surgery; ATTEND Surgery
PROC: 0DV44ZZ Restriction of Esophagogastric Junction, Percutaneous Endoscopic Approach (ICD-10-PCS; principal; 2019-10-11 09:00)
PROC: 0BQT4ZZ Repair Diaphragm, Percutaneous Endoscopic Approach (ICD-10-PCS; 2019-10-11 09:00)
PROC: 0DJ08ZZ Inspection of Upper Intestinal Tract, Via Natural or Artificial Opening Endoscopic (ICD-10-PCS; 2019-10-11 09:00)
DX: K21.0 Gastro-esophageal reflux disease with esophagitis (principal); J90 Pleural effusion, not elsewhere classified; K44.9 Diaphragmatic hernia without obstruction or gangrene; J44.9 Chronic obstructive pulmonary disease, unspecified; D64.9 Anemia, unspecified; E87.6 Hypokalemia